=== PATIENT | female | born 1960 | race Caucasian/White ===

== ENCOUNTER 2017-07-27 11:14 | Emergency (ER) | payer OTHER, BC ==
[2017-07-27] MEDS ORDERED: ONDANSETRON 4 MG ODT ONE (11:54)
[2017-07-27 12:03] VITALS: O2SAT 98
[2017-07-27] MEDS ORDERED: ONDANSETRON 4 MG ODT BU ONE (12:11)
[2017-07-27 12:44] VITALS: BP 147/99; PULSE 88; RESP 16; TEMP 98
== END 2017-07-27 12:34 | disposition home or self-care (01) | DRG 605 ==
LOC: ED 11:14
DX: S00.83XA Contusion of other part of head, initial encounter (principal); V47.0XXA Car driver injured in collision with fixed or stationary object in nontraffic accident, initial encounter
CPT/HCPCS: 99282; 99283; A9270-GY